=== PATIENT | female | born 1965 | race Caucasian/White ===

== ENCOUNTER 2022-10-26 15:11 | Emergency (ER) | payer OTHER ==
[~2022-10-26] VITALS: Ht 160 cm; Wt 99.8 kg
[2022-10-26 15:20] VITALS: BP 137/88
--- NOTE | 2022-10-26 16:11 | NUR ---
PT TAKEN TO CT BY [employer]IL [employer]ER VIA WHEELCHAIR
--- NOTE | 2022-10-26 16:20 | NUR ---
PT BROUGHT BACK TO BED 1 VIA WHEELCHAIR
--- NOTE | 2022-10-26 16:34 | NUR ---
57YO FEMALE PT BIBA HOME DUE TO ALOC XTODAY. DAUGHTER STATES CALLING 911 AFTER FINDING PT ON COUCH UNRESPONSIVE. PT REPORTS FEELING "DEPRESSED AND STRESSED" "MY SOUL HURTS" "I FALL INTO A BLACK HOLE". LAST RECALLS UNLOCKING DOOR FOR DAUGHTER FOR "POSSIBLE EMERGENCY". -AUDIO/VISUAL HALLUCINATIONS. DENIES SI, N/V/D, CHEST PAIN, FEVER , CHILLS, OR SOB. PT AAOX4, CRYING DURING ASSESSMENT. 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 HX:HTN, DM, ASTHMA, DEPRESSION NKA
[2022-10-26 16:45] LABS: BASOPHILS % (AUTO) 0.6 % (0.0-2.0); EOSINOPHILS % (AUTO) 0.5 % (0.0-4.0); HEMOGLOBIN 13.5 g/dL (12.0-16.0); LYMPHOCYTES # (AUTO) 1.1 K/uL (2.5-16.5); LYMPHOCYTES % (AUTO) 21.1 % (20.5-51.1); MEAN CORPUSCULAR HEMOGLOBIN 28 pg (27-31); MEAN CORPUSCULAR HGB CONC 35 g/dL (33-37); MEAN CORPUSCULAR VOLUME 82.2 fL (80-94); MONOCYTES # (AUTO) 0.2 K/uL (0.8-1.0); MONOCYTES % (AUTO) 4.3 % (1.7-9.3); NEUTROPHILS % (AUTO) 73.5 % (42.2-75.2); PLATELET COUNT (AUTO) 197 K/uL (140-450); RED BLOOD CELL COUNT(AUTO) 4.74 MIL/uL (4.20-5.40); RED CELL DISTRIBUTION WIDTH 13.2 % (11.6-13.7); WHITE BLOOD COUNT (AUTO) 5.4 K/uL (4.8-10.8)
[2022-10-26 17:06] LABS: ALBUMIN 4.5 g/dL (3.4-5.0); ASPARTATE AMINOTRANSFERASE 16 U/L (15-37); CARBON DIOXIDE 26.7 mmol/L (21-32); CHLORIDE 109 mmol/L (98-107); CREATININE 0.4 mg/dL (0.6-1.3); GFR ARICAN-AMERICAN 210 mL/min (>90); GLUCOSE 105 mg/dL (74-106); POTASSIUM 3.7 mmol/L (3.5-5.1); SODIUM SERUM 146 mmol/L (136-145); TOTAL BILIRUBIN 0.4 mg/dL (0.0-1.0); UREA NITROGEN, BLOOD 11 mg/dL (7-18)
[2022-10-26 17:16] LABS: BILIRUBIN,URINE NEGATIVE (NEGATIVE); BLOOD, URINE NEGATIVE (NEGATIVE); LEUKOCYTE ESTERASE ,URINE NEGATIVE (NEGATIVE); NITRITE, URINE NEGATIVE (NEGATIVE); UGLUCOSE NEGATIVE (NEGATIVE)
[2022-10-26 17:31] VITALS: BP 114/78
--- NOTE | 2022-10-26 17:55 | NUR ---
PT AMB TO CHAIR C
[2022-10-26 18:03] LABS: APPEARANCE,URINE CLEAR (CLEAR); COLOR,URINE YELLOW (YELLOW)
[2022-10-26] MEDS ORDERED: HYDR-637 PO (18:05)
--- NOTE | 2022-10-26 18:35 | NUR ---
PT LEFT PRIOR TO DC. CALLED TO LOBBY, NO ANSWER
== END 2022-10-26 18:35 | disposition home or self-care (01) ==
LOC: MED 15:11
DX: F41.0 Panic disorder [episodic paroxysmal anxiety] (principal); J45.909 Unspecified asthma, uncomplicated; I10 Essential (primary) hypertension; Z79.899 Other long term (current) drug therapy
CPT/HCPCS: 36415; 70450; 71045; 80053; 81003; 84484; 85025; 93005; 99285

== ENCOUNTER 2024-07-11 02:35 | Emergency (ER) | payer OTHER ==
[~2024-07-11] VITALS: Ht 157.5 cm; Wt 83.0 kg
[~2024-07-11 02:35] MED LIST: HYDR-637 PO
[2024-07-11 02:46] VITALS: BP 120/63; PULSE 67; RESP 18; TEMP 97.8; O2SAT 97
[2024-07-11 03:10] VITALS: O2SAT 97
[2024-07-11] MEDS ORDERED: NAPR-337 PO (04:06)
[2024-07-11] MEDS: KETOROLAC 60 MG/2 ML VIAL IM ONE (04:09)
== END 2024-07-11 04:32 | disposition home or self-care (01) ==
LOC: MED 02:35
DX: G44.209 Tension-type headache, unspecified, not intractable (principal); J45.909 Unspecified asthma, uncomplicated; I10 Essential (primary) hypertension; E78.00 Pure hypercholesterolemia, unspecified; Z79.899 Other long term (current) drug therapy
CPT/HCPCS: 96372; 99283; J1885